=== PATIENT | female | born 1975 | race Caucasian/White ===

== ENCOUNTER 2024-05-01 16:52 | Emergency (ER) | payer OTHER, SELFPAY ==
[2024-05-01 17:00] VITALS: BP 149/89
[2024-05-01 17:24] VITALS: BMI 35.0
[2024-05-01 17:55] LABS: % Basophils 0.6 % (0-2); % Eosinophils 2.7 % (0-6); % Immature Granulocytes 0.4 % (0-0.5); % Lymphocytes 27.8 % (20.5-51.1); % Monocytes 10.9 % (1.7-9.3); % Neutrophils 57.6 % (42.2-75.2); Absolute Basophils 0.1 10^3/uL (0-0.2); Absolute Eosinophils 0.3 10^3/uL (0-0.7); Absolute Immature Granulocytes 0.1 10^3/uL (0-0.05); Absolute Lymphocytes 3.5 10^3/uL (1.2-3.4); Absolute Monocytes 1.4 10^3/uL (0.1-0.6); Absolute Neutrophils 7.3 10^3/uL (1.4-6.5); Hematocrit 39.8 % (37.0-47.0); Mean Corp Hgb Conc. 35.2 g/dL (33.0-37.0); Mean Corpuscular Hgb 28.5 pg (27.0-31.0); Mean Corpuscular Volume 80.9 fL (81.0-99.0); Mean Platelet Volume 8.8 fL (7.4-10.4); Nucleated Red Blood Cells % 0 %; Platelet Count 416 10^3/uL (130-400); Red Blood Cell Count 4.92 10^6/uL (4.20-5.40); Red Cell Dist. Width 13.8 % (11.5-14.5); White Blood Cell Count 12.6 10^3/uL (4.8-10.8)
[2024-05-01 18:03] LABS: HCG, Serum Qualitative Screen Negative
[2024-05-01 18:07] LABS: ALT (SGPT) 28 U/L (0-35); AST (SGOT) 27 U/L (14-36); Albumin 4.3 g/dl (3.5-5.0); Alkaline Phosphatase 72 U/L (38-126); Blood Urea Nitrogen 10 mg/dl (7-17); Calcium 9.6 mg/dl (8.4-10.2); Carbon Dioxide 22 mmol/L (22-30); Chloride 104 mmol/L (98-107); Estimated Creatinine Clearance > 125 ml/min; Glucose 131 mg/dl (70-99); Potassium 3.3 mmol/L (3.5-5.1); Sodium 142 mmol/L (135-145); Total Bilirubin 0.3 mg/dl (0.2-1.3); Total Protein 7.2 g/dl (6.3-8.2); eGFR > 60.00
--- NOTE | 2024-05-01 18:26 | ED.GENMED ---
History of Present Illness
General
Chief Complaint: Cardiac Symptoms
Source: patient
Exam Limitations: none
Time Seen by Provider: 05/01/24 17:23
History of Present Illness
History of Present Illness:
Patient with recent nasal congestion sinus-like symptoms. Saw her primary physician today and started on Bactrim. However shortly after developed a rapid heartbeat. Noted also on her monitor. No chest pain or shortness of breath. Sent in for
further evaluation. No history of same.
Past History
Past History
ED Past Medical History: HTN
ED Past Surgical History: Tonsilectomy
Review of Systems
Review of Systems
All Other Systems: Not applicable
Constitutional: Denies fever
Respiratory: Denies trouble breathing
Cardiac: Denies chest pain or syncope
Phy Exam
Physical Exam
Physical Exam:
GENERAL: Alert and oriented in no apparent distress
EYE: Orbits normal.
NECK: Supple, no thyroid palpable
ENT: Nasal congestion
CARDIAC: Tachycardic and regular no murmur
LUNGS: Clear breath sounds,normal
ABDOMEN: Soft, without focal tenderness or distention
NEUROLOGICAL: Alert and oriented , grossly non-focal
SKIN: Warm and dry, no rash or lesion, no discoloration, skin intact.
MUSCULOSKELETAL: No edema,no deformity.Good color
PSYCH: Normal and appropriate interaction.
Scores
[id number] Score for Afib Stroke Risk
Age in Years (65=0, 65-74=1, >/=75=2): <65
Sex (Female=+1): Female
Congestive Heart Failure History (Yes=+1): No
Hypertension History (Yes=+1): Yes
Stroke/TIA/Thromboembolism History (Yes=+2): No
Vascular Disease History (Yes=+1): No
Diabetes Mellitus (Yes=+1): No
Score: 2
Anticoagulation Recommendations: Recommend anticoagulation (as validated in nonvalvular fib)
Course
Orders/Labs/Results
Orders:
Orders
05/01/24 16:53
Electrocardiogram (*1) Urgent
Reason for Study: Bradycardia / Tachycardia
05/01/24 16:54
EKG- Treatment ONCE
05/01/24 17:43
Test Result ONCE
05/01/24 17:44
Complete Blood Count/With Diff Urgent
Comprehensive Metabolic Panel Urgent
HCG, Serum Qualitative Screen Urgent
TSH Reflex To Free T4 Urgent
05/01/24 18:02
Electrocardiogram (*1) Urgent
Reason for Study: Tachycardia
EKG- Treatment ONCE
05/01/24 18:35
Potassium Chloride 10% Elixir [KCl Elixir] 40 meq PO NOW STA
Abnormal Lab Results
05/01/24
17:44
WBC 12.6 H 10^3/uL
(4.8-10.8)
MCV 80.9 L fL
(81.0-99.0)
Plt Count 416 H 10^3/uL
(130-400)
Abs Immat Gran (auto) 0.1 H 10^3/uL
(0-0.05)
Absolute Neuts (auto) 7.3 H 10^3/uL
(1.4-6.5)
Absolute Lymphs (auto) 3.5 H 10^3/uL
(1.2-3.4)
Absolute Monos (auto) 1.4 H 10^3/uL
(0.1-0.6)
Monocytes % 10.9 H %
(1.7-9.3)
Potassium 3.3 L mmol/L
(3.5-5.1)
Glucose 131 H mg/dl
(70-99)
05/01/24 17:44
05/01/24 17:44
Vital Signs
Initial and Last Documented VS:
Initial Vital Signs
Temp Pulse Resp BP Pulse Ox
98.0 F 164 20 149/89 96
05/01/24 17:00 05/01/24 17:00 05/01/24 17:00 05/01/24 17:00 05/01/24 17:00
Last Documented Vital Signs
Temp Pulse Resp BP Pulse Ox
98.0 F 161 20 149/89 96
05/01/24 17:00 05/01/24 17:24 05/01/24 17:24 05/01/24 17:00 05/01/24 17:49
*Pulse Oximetry
Patient hypoxic: no
*EKG
Interpreted by ED Provider?: Yes
Interpretation: abnormal
Comparison EKG: no comparison EKG present
Heart Rate: 164
Rate: tachycardiac
Rhythm: atrial flutter
[place]: normal axis
Interval: normal interval
QRS Pattern: wide non-specific
Ischemia: non-specific ST changes
*Button Cutter Interpretation
Rate: tachycardiac
Interpretation: abnormal
Heart Rate: 150
Rhythm: atrial flutter
*Critical Care Note
Total Time (30-74mins, 75-104mins- exclusive of procedures): Not Applicable
Update Note
Update Note:
I felt this was an atrial flutter. Reviewed with cardiology who agreed. Was going to give a dose of Lopressor then patient self converted. Repeat EKG normal sinus tachycardia at 110. Nonspecific changes. Currently heart rate down to 103.
Medically stable. Of right thyroid. Discussed with a Baldev Vasc score of anticoagulation which cardiology did recommend pending follow-up
1900.... Patient is remained stable and nontoxic. Normal sinus rhythm. No symptoms to support pulmonary emboli. Recommended anticoagulation based on her Baldev vas score. However discussed plus minus is not patient has a leg to hold off. She will
follow-up with cardiology.
ED Attending Note
-
Portions of this chart may have been created with voice recognition software.� Occasional wrong word or��sound alike� substitutions may have occurred due to the inherent limitations of voice recognition software.
Discharge Plan
Departure
Patient Disposition: Home (Routine Discharge)
Date of Disposition: 05/01/24
Time of Disposition: 19:12
Patient with high blood pressure during this ER visit?: Yes
Discharge Problem:
Paroxysmal atrial flutter, Mild hypokalemia, Sinusitis
Instructions: Hypokalemia, Atrial Fibrillation and Atrial Flutter ED, BLOOD PRESSURE
Referrals:
Tj Graves MD [Active] - Follow up in 5-7 days
Pauline Ceballos DO [Family Provider] - Follow up in 2-3 days
Interventions
Interventions:
*General Assessment Last Done: 05/01/24 17:35
*Neglect/Abuse Screening Last Done: 05/01/24 17:35
*ED COVID-19 Vaccine History Last Done: 05/01/24 17:34
ED- Pulmonary Assessment Last Done: 05/01/24 17:49
ED- Cardiac Assessment Last Done: 05/01/24 17:49
Discharge Date and Time
Print Language: [email or web address]
[2024-05-01 18:39] LABS: TSH Reflex To Free T4 1.06 uIU/ml (0.47-4.68)
[2024-05-01] MEDS: KCL ELIXIR 40 MEQ PO (18:50)
== END 2024-05-01 19:31 | disposition home or self-care (01) ==
LOC: EMR 16:52
PROVIDERS: EMERGENCY PHYSICIAN Emergency Medicine; FAMILY PHYSICIAN Family Medicine
DX: I48.92 Unspecified atrial flutter (principal); E87.6 Hypokalemia; J32.9 Chronic sinusitis, unspecified; I10 Essential (primary) hypertension
CPT/HCPCS: 99284; 80053; 84443; 84703; 85025; 93005